=== PATIENT | female | born 1985 | race Caucasian/White ===

== ENCOUNTER → 2016-12-28 | Outpatient (CLI) | payer OTHER | LOC: FIMAGING 14:28 | PROVIDERS: ATTEND Advanced Practice Midwife | DX: Z36 Encounter for antenatal screening of mother (principal); Z3A.20 20 weeks gestation of pregnancy ==

== ENCOUNTER 2017-01-28 05:29 | Observation (INO) | payer OTHER ==
[2017-01-28 06:51] LABS: COLOR PALE YELLOW; LEUKOCYTE ESTERASE,URINE TRACE (NEGATIVE); NITRITE,URINE NEGATIVE (NEGATIVE)
[2017-01-28 06:52] LABS: BACTERIA TRACE /hpf (NONE SEEN); RBC,URINE 25-50 /hpf (0-3)
--- NOTE | 2017-01-28 07:19 | OBPROG ---
OBG Progress Note Assessment/Plan: Assessment:speculum exam cervix appears closed mariaa q3-5 minutes denies leaking bleeding or cramping wet prep/+ for BV exam 1 outer os/ closed inner os assessment of previous cervical length from 20 week us denies urinary symptoms consult physician dr. acuna for POC us for cervical length minimal difference from previous cervical length Plan:flagyl, iv fluids cervical length by us no treatment for contractions per dr. Mckeno 01/28/17 07:12 Subjective: Complaint of contractions since yesterday. Denies urine symptoms. " States I have discharge vaginally routinely - SVE Dilation (cm): 1 Effacement (%): Less than 50 Station: -3 Current Contraction Pattern: Irregular FHR Pattern Variability: Moderate FHR Category: 1 Membranes: Intact - Physical Exam General Appearance: WD/WN, alert, no apparent distress Neck: non-tender, full range of motion Respiratory: lungs clear, normal breath sounds Cardiac/Chest: regular rate, rhythm Abdomen: normal bowel sounds Membranes: Intact Extremities: normal range of motion DTR- Lower Extremities: Knee (R): 1+, Knee (L): 1+ Skin: normal color, warm/dry Neuro/Psych: no motor/sensory deficits, alert, normal mood/affect, oriented x 3 ICD10 Worksheet Patient Problems: Problems Problem Status Onset uterine contractions in second trimester, antepartum Acute - ICD10 Problem Qualifiers (1) uterine contractions in second trimester, antepartum
[2017-01-28] MEDS ORDERED: LR 1,000 ML IV SCH (07:30)
[2017-01-28] MEDS ORDERED: metroNIDAZOLE 500 MG TAB PO SCH (07:30)
--- NOTE | 2017-01-28 07:51 | GHP ---
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 Patient states that in the beginning contractions were irregular and then by the time that she came into Labor and Delivery they were every 5 minutes. Patient is a 1, para 0, EDC of 05/18/2017 with a gestational age of 24 weeks. Patient denies leaking, bleeding, feeling positive movement. Patient is having routine care through the [facility]. Denies medical difficulties with the MEDICAL HISTORY: Benign. SURGICAL HISTORY: Benign. GYNECOLOGICAL HISTORY: Abnormal Pap 10 years ago. Previous use of OCPs, condoms and IUDs. Patient states has had routine normal . ALLERGIES: NKDA PHYSICAL EXAMINATION: Lungs are clear bilaterally. Bowel sounds are positive in all 4 quadrants. Patient is awake, alert, oriented x3. Heart rate is regular and rhythmic. DTRs are 1+ bilaterally. No clonus. Homans sign is negative bilaterally. heart rate was 130. Contractions were every 3-5 minutes on the monitor. Abdomen was soft on palpation. Patient states taking vitamins. SPECULUM EXAMINATION: Cervix appeared closed. Wet prep positive BV. Questioning dehydration. IV fluids begun 1 L bolus. Urine sent for analysis. An ultrasound for cervical length was also completed and review of previous 20 week anatomy ultrasound for cervical length difference. Cervical exam revealed a soft cervix with outer os 1, the inner os is closed. Consult Dr. Marielle Espinoza agreement with plan of care. PLAN OF TREATMENT: Treatment with Flagyl 500 mg p.o. twice daily x7 days. IV fluids. Consult physician for plan of care as needed. /[id number]/MODL MTDD
--- NOTE | 2017-01-28 20:08 | GDS ---
[f rep st] DISCHARGE SUMMARY Patient is a 31-year-old, 1, para 0, who is 24 weeks gestation. She is a patient of the [facility]. She began having increasing cramping overnight and came in for evaluation. A fibronectin was not collected. Instead, a cervical exam was performed which revealed a soft cervix with a slightly dilated external os, but a closed internal os. The cervical length ultrasoun d was performed, and the cervical length was 3.4 cm. Patient was hydrated and was diagnosed with ba cterial vaginosis and started on Flagyl. She continued to have occasional contractions throughout . She was re-examined several hours later and her cervix had not made any change. We had a l sacha discussion about management options with the patient and her and patient states she is f eeling occasional contractions, but they are substantially milder than they were before and they wer e never particularly intense. We discussed precautions and management options of continuing in-house observation. The patient declined this. The patient will be discharged to home with a pr escription for Flagyl to continue 500 mg p.o. twice a day for 7 days. I have instructed her to have precautions, and hydrate well and be on pelvic rest for the next couple days. She is to fo llow up with [facility] or with [facility] on Tuesday and have a fibrone ctin collected and monitor contractions. /[id number]/MODL
== END 2017-01-28 18:15 | disposition home or self-care (01) ==
LOC: FLD 05:29
PROVIDERS: ADMIT Advanced Practice Midwife; ATTEND Advanced Practice Midwife
DX: O47.02 False labor before 37 completed weeks of gestation, second trimester (principal); O23.592 Infection of other part of genital tract in pregnancy, second trimester; Z3A.24 24 weeks gestation of pregnancy
CPT/HCPCS: 76805; 76815; G0378